=== PATIENT | male | born 1960 | race American Indian/Alaskan Native ===

== ENCOUNTER 2017-05-16 20:36 | Emergency (ER) | payer MEDICARE ==
[2017-05-16 21:52] LABS: Basophils % (Auto) 0.6 % (0.0-1.8); Eosinophils % (Auto) 4.3 % (0.0-4.3); Hematocrit 37.4 % (35.5-45.6); Hemoglobin 11.9 gm/dl (11.8-15.2); Mean Corpuscular HGB Conc 32 % (32-34); Mean Corpuscular Hemoglobin 26 pg (28-32); Mean Corpuscular Volume 83 fl (84-94); Platelet Count 197 K/mm3 (140-440); Red Blood Count 4.53 M/mm3 (3.65-5.03); Red Cell Distribution Width 13.9 % (13.2-15.2); White Blood Count 5.6 K/mm3 (4.5-11.0)
[2017-05-16 21:57] LABS: Anion Gap 17 mmol/L; Blood Urea Nitrogen 13 mg/dL (9-20); Carbon Dioxide 24 mmol/L (22-30); Chloride 94.4 mmol/L (98-107); Glucose 101 mg/dL (75-100); Potassium 3.8 mmol/L (3.6-5.0); Sodium 132 mmol/L (137-145)
[2017-05-16 22:36] LABS: Urine Drugs of Abuse Note Disclamer
[2017-05-16 23:04] LABS: Bilirubin,Urine NEG (Negative); Blood,Urine NEG (Negative); Ketones,Urine NEG (Negative); Leukocyte Esterase,Urine NEG (Negative); Mucus,Urine FEW /HPF; Nitrite,Urine NEG (Negative); Protein,Urine <15 mg/dL mg/dL (Negative); Urobilinogen,Urine < 2.0 mg/dL (<2.0); WBC,Urine < 1.0 /HPF (0.0-6.0)
[2017-05-17 02:32] VITALS: BP 172/65
--- NOTE | 2017-05-17 02:33 | Emergency Department Report ---
ED Medical Clearance HPI - General Chief complaint: Medical Clearance Stated complaint: CONSTIPATION Time Seen by Provider: 05/17/17 02:31 Source: patient, family Mode of arrival: Ambulatory Limitations: No Limitations - History of Present Illness -: Gradual Alledged Intoxication: No Compliant with Home Medications: No Traumatic Symptoms: denies traumatic injury Associated Symptoms: denies: chest pain, shortness of breath, palpitations, diaphoresis, denies other symptoms, confusion Treatments Prior to Arrival: none Home medications: Previous Rx's Medication Instructions Recorded Last Taken Type Hydrocodone Bit/Acetaminophen 1 - 2 each PO Q4-6H PRN #15 tablet 11/24/13 Unknown Rx [Lortab 5-500 Tablet] Ibuprofen [Motrin 800 MG tab] 800 mg PO TID PRN #20 tablet 11/24/13 Unknown Rx Loperamide [Imodium] 2 mg PO Q6HR PRN #20 capsule 07/14/15 Unknown Rx Polyethylene Glycol 3350 [Miralax 17 gm PO QDAY #30 packet 05/17/17 Unknown Rx 3350] Allergies/Adverse reactions: Allergies Allergy/AdvReac Type Severity Reaction Status Date / Time No Known Allergies Allergy Unverified 11/24/13 09:07 ED Review of Systems ROS: Stated complaint: CONSTIPATION Other details as noted in HPI Comment: All other systems reviewed and negative Constitutional: no symptoms reported, see HPI Eyes: as per HPI ENT: as per HPI Respiratory: no symptoms reported, see HPI Cardiovascular: as per HPI. denies: chest pain, palpitations Endocrine: no symptoms reported, see HPI. denies: excessive sweating, flushing , intolerance to cold Gastrointestinal: as per HPI, constipation (the residential brings him today to ro bowel problem d/t his psych meds). denies: abdominal pain, nausea, vomiting , diarrhea, hematemesis, melena Genitourinary: as per HPI. denies: urgency, dysuria Musculoskeletal: as per HPI Skin: as per HPI Neurological: as per HPI Psychiatric: as per HPI Hematological/Lymphatic: as per HPI ED Past Medical Hx - Past Medical History Hx Hypertension: Yes Additional medical history: MR. Will Hypothyroid - Surgical History Past Surgical History?: No - Family History Family history: no significant - Social History Smoking Status: Never Smoker Substance Use Type: None - Medications Home Medications: Home Medications Medication Instructions Recorded Confirmed Last Taken Type Hydrocodone Bit/Acetaminophen 1 - 2 each PO Q4-6H PRN #15 tablet 11/24/13 Unknown Rx [Lortab 5-500 Tablet] Ibuprofen [Motrin 800 MG tab] 800 mg PO TID PRN #20 tablet 11/24/13 Unknown Rx Loperamide [Imodium] 2 mg PO Q6HR PRN #20 capsule 07/14/15 Unknown Rx Polyethylene Glycol 3350 [Miralax 17 gm PO QDAY #30 packet 05/17/17 Unknown Rx 3350] ED Physical Exam - General Limitations: No Limitations General appearance: alert, in no apparent distress - Head Head exam: Present: atraumatic - Eye Eye exam: Present: normal appearance, PERRL - ENT ENT exam: Present: normal exam, mucous membranes moist - Neck Neck exam: Present: normal inspection - Respiratory Respiratory exam: Present: normal lung sounds bilaterally. Absent: respiratory distress, wheezes - Cardiovascular Cardiovascular Exam: Present: regular rate, normal rhythm - GI/Abdominal GI/Abdominal exam: Present: soft, normal bowel sounds, other (eating normal and drinking without difficulty.). Absent: distended, tenderness, guarding, rebound , rigid, diminished bowel sounds, hyperactive bowel sounds, hypoactive bowel sounds, organomegaly, mass, bruit, pulsatile mass, hernia - Rectal Rectal exam: Present: deferred - Extremities Exam Extremities exam: Present: full ROM - Back Exam Back exam: Present: normal inspection. Absent: full ROM, tenderness, CVA tenderness (R) - Neurological Exam Neurological exam: Present: alert, other (MR from residential, normal for him) - Psychiatric Psychiatric exam: Absent: normal affect, normal mood - Skin Skin exam: Present: warm, dry, intact, normal color. Absent: rash ED Course Vital Signs 05/16/17 05/17/17 20:40 02:31 Temperature 98.6 F Pulse Rate 52 L 72 Respiratory 16 20 Rate Blood Pressure 154/82 172/65 [Right] O2 Sat by Pulse 100 99 Oximetry - Reevaluation(s) Reevaluation #1: 05/17/17 02:42 here w residential for med clearance pt is in no distress he is taking po eating no n/v/d no fever ambulatory labs noted. ED Medical Decision Making - Lab Data Result diagrams: 05/16/17 21:27 05/16/17 21:27 - Radiology Data Radiology results: image reviewed - Medical Decision Making nad. exam wnl. labs and xray noted ED Disposition Clinical Impression: Mental and behavioral problem in adult, Constipated Disposition: [id number] TO HOME OR SELFCARE Is pt being admited?: No Does the pt Need Aspirin: No Condition: Stable Instructions: Constipation (ED), High Fiber Diet (ED) Additional Instructions: increase hydration romero water take meds as ordered monitor bowel movements Referrals: PRIMARY CARE, [Primary Care Provider] - 3-5 Days
[2017-05-17] MEDS ORDERED: CEPHULAC PO ONE (02:53)
[2017-05-17] MEDS ORDERED: FLEET PR ONE (02:53)
--- NOTE | 2017-05-17 09:34 | XRay Report ---
KUB: 05/17/17 02:32:00 CLINICAL: Abdominal pain. FINDINGS: Normal bowel gas pattern with a large volume of stool throughout the colon and in the rectum. No distended bowel and no air-fluid levels. No mass or suspicious calcifications. No pneumoperitoneum. The bones and soft tissues are normal. IMPRESSION: Negative abdomen with abundant stool.
== END 2017-05-17 03:16 | disposition home or self-care (01) ==
LOC: ED 20:36
DX: K59.00 Constipation, unspecified (principal); I10 Essential (primary) hypertension; E03.9 Hypothyroidism, unspecified; F91.9 Conduct disorder, unspecified
CPT/HCPCS: 36415; 74000; 80048; 80164; 80307; 81001; 85025; 99284; G0480; 80320